=== PATIENT | female | born 1975 | race Caucasian/White ===

== ENCOUNTER 2018-05-15 04:29 | Emergency (ER) | payer OTHER ==
--- NOTE | 2018-05-15 05:23 | EDM.PDOC ---
ED HPI GENERAL MEDICAL PROBLEM - General Chief Complaint: ENT Problem Stated Complaint: TOOTHACHE Time Seen by Provider: 05/15/18 05:13 Source of Information: Reports: Patient, Family (Spouse), RN Notes Reviewed History Limitations: Reports: Intoxication (spouse) - History of Present Illness INITIAL COMMENTS - FREE TEXT/NARRATIVE: Here with her Chief complaint Dental pain and swelling History of present illness 42-year-old female started developing acute pain and swelling right side of the lower teeth look 3 days ago, her has atenolol view also she had no access to care. She developed quite a large swelling and she suspected an abscess. She packed her mouth assault he was able to get a lot of drainage to come down. 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: - Past Surgical History GI Surgical History: Reports: Other (See Below) Other GI Surgeries/Procedures: abdominal circlogen stitch Female Surgical History: Reports: Section Social & Family History - Tobacco Use Smoking Status *Q: Current Every Day Smoker Years of Tobacco use: 25 Packs/Tins Daily: 0.5 - Caffeine Use Caffeine Use: Reports: Coffee - Recreational Drug Use Recreational Drug Use: No ED ROS ENT - Review of Systems Review Of Systems: See Below Constitutional: Reports: Other (Sleep disturbance) HEENT: Reports: Dental Pain, Other Respiratory: Reports: No Symptoms Cardiovascular: Reports: No Symptoms GI/Abdominal: Reports: No Symptoms Skin: Reports: No Symptoms Neurological: Reports: No Symptoms ED EXAM, ENT - Physical Exam Exam: See Below Exam Limited By: No Limitations General Appearance: Alert, Mild Distress, Other (Vital signs normal) Eye Exam: Bilateral Eye: Normal Inspection Ears: Normal External Exam Nose: Normal Inspection Mouth/Throat: Normal Inspection, Normal Oropharynx, Dental Abcess (Right lower alveolar ridge), Dental Pain, Dental Tenderness, Other (Stents of dental caries) Neck: Normal Inspection. No: Lymphadenopathy (R), Lymphadenopathy (L) Respiratory/Chest: No Respiratory Distress, No Accessory Muscle Use Cardiovascular: Normal Peripheral Pulses, Regular Rate, Rhythm Neurological: Alert, Oriented Skin: Warm, Dry, Intact Course - Vital Signs Last Recorded V/S: Last Vital Signs Temp 36.4 C 05/15/18 04:52 Pulse 98 05/15/18 04:52 Resp 12 05/15/18 04:52 BP 100/72 05/15/18 04:52 Pulse Ox 98 05/15/18 04:52 - Re-Assessments/Exams Free Text/Narrative Re-Assessment/Exam: 05/15/18 05:21 42-year-old female with significant dental caries resulting in a dental abscess This is draining but she still has significant infection in her mouth Treatment with antibiotic and pain medication Follow-up dentist Departure - Departure Time of Disposition: 05:22 Disposition: Home, Self-Care 01 Condition: Fair Clinical Impression: Dental abscess, Dental caries - Discharge Information Prescriptions: Hydrocodone/Acetaminophen [Hydrocodon-Acetaminophen 5-325] 1 - 2 each PO Q4H PRN #12 tablet PRN Reason: Moderate or severe pain Penicillin V Potassium 500 mg PO TID #30 tab Instructions: Dental Abscess Referrals: PCP,None [Primary Care Provider] - Forms: ED Department Discharge Additional Instructions: Please make an appointment with dental provider as soon as possible
== END 2018-05-15 05:57 | disposition home or self-care (01) ==
LOC: JP.ED 04:29
DX: K04.7 Periapical abscess without sinus (principal); K02.9 Dental caries, unspecified; F17.210 Nicotine dependence, cigarettes, uncomplicated
CPT/HCPCS: 99283